=== PATIENT | male | born 1950 | race African-American/Black ===

== ENCOUNTER 2017-02-05 11:54 | Emergency (ER) | payer OTHER, BC ==
[~2017-02-05] VITALS: Ht 170.2 cm; Wt 103.5 kg
[~2017-02-05 11:54] MED LIST: ATORVASTATIN CA80 MG PO; FLEXERIL10 MG PO; FLEXERIL5 MG PO; HYDROCHLOROTHIA25 MG PO; LOSARTAN POTASS25 MG PO; METFORMIN HCL500 MG PO; NAPROSYN500 MG PO; OMEPRAZOLE20 MG PO; PERCOCET 5/31 TABLET PO; SKELAXIN800 MG PO; TRAMADOL HCL50 MG PO; VALIUM2 MG PO; VALIUM5 MG PO
[2017-02-05] MEDS ORDERED: unable to obtain (13:43)
[2017-02-05] MEDS ORDERED: PERCOCET 5/31 TABLET PO (14:50)
[2017-02-05 15:16] VITALS: BP 125/71
== END 2017-02-05 15:26 | disposition home or self-care (01) ==
LOC: EME → EDBD 11:54 → EME 11:54
DX: M25.511 Pain in right shoulder (principal); R07.81 Pleurodynia; V49.40XA Driver injured in collision with unspecified motor vehicles in traffic accident, initial encounter
CPT/HCPCS: 71101; 73010; 73030; 99281; 99284